=== PATIENT | female | born 1980 | race Caucasian/White ===

== ENCOUNTER 2016-10-09 09:55 | Emergency (ER) | payer OTHER ==
[2016-10-09 10:18] VITALS: RESP 16
[2016-10-09] MEDS ORDERED: PROPARACAINE 0.5% OPHTH DROPS 15 ML BTL RIGHT EYE STA (11:06)
[2016-10-09] MEDS ORDERED: TOBRAMYCIN 0.3% OPHTH DROPS 5 ML BTL RIGHT EYE STA (11:09)
--- NOTE | 2016-10-09 11:17 | ED ---
General Adult HPI - General Chief complaint: Eye Problems Stated complaint: eye pain Time Seen by Provider: 10/09/16 10:48 Source: patient, RN notes reviewed Mode of arrival: ambulatory Limitations: no limitations - History of Present Illness Initial comments: Patient 35-year-old female who presents emergency room today with chief complaint of injury to the right eye. Does admit that she was using a tweezers 20 and her son came up bumped her in the leg and she accidentally poked herself in the right eye. She states her vision has been fine. States does feel a foreign body sensation. Patient states it happened approximately 2-1/2 hours ago. She denies any other complaints or symptoms. States her tetanus is up-to- date. Patient denies any recent fever, chills, shortness of breath, chest pain, back pain, abdominal pain, nausea or vomiting, numbness or tingling, dysuria or hematuria, constipation or diarrhea, headaches or visual changes, or any other complaints. - Related Data Home Medications Medication Instructions Recorded Confirmed Cetirizine HCl [Zyrtec] 10 mg PO DAILY PRN 10/09/16 10/09/16 Ibuprofen [Motrin] 400 mg PO Q6HR PRN 10/09/16 10/09/16 Previous Rx's Medication Instructions Recorded Tobramycin 0.3% Ophth Soln [Tobrex 1 - 2 drop BOTH EYES QID 7 Days 10/09/16 0.3% Ophth Soln] Allergies Allergy/AdvReac Type Severity Reaction Status Date / Time codeine Allergy Rash/Hives Verified 10/09/16 10:30 Penicillins Allergy WELTS/RASH Verified 10/09/16 10:30 tramadol AdvReac RESTLESS Verified 10/09/16 10:30 LEG Review of Systems ROS Statement: Those systems with pertinent positive or pertinent negative responses have been documented in the HPI. ROS Other: All systems not noted in ROS Statement are negative. Past Medical History Past Medical History: No Reported History History of Any Multi-Drug Resistant Organisms: None Reported Past Surgical History: Breast Surgery, Tonsillectomy Additional Past Surgical History / Comment(s): LAPAROSCOPY Past Psychological History: ADD/ADHD Smoking Status: Current every day smoker Past Alcohol Use History: Occasional Past Drug Use History: None Reported General Exam - General Exam Comments Initial Comments: General: The patient is awake and alert, in no distress, and does not appear acutely ill. Eye: Pupils are equal, round and reactive to light, extra-ocular movements are intact. No nystagmus. There is normal conjunctiva bilaterally. No signs of icterus. Ears, nose, mouth and throat: There are moist mucous membranes and no oral lesions. Neck: The neck is supple, there is no tenderness or JVD. Cardiovascular: There is a regular rate and rhythm. No murmur, rub or gallop is appreciated. Respiratory: Lungs are clear to auscultation, respirations are non-labored, breath sounds are equal. No wheezes, stridor, rales, or rhonchi. Musculoskeletal: Normal ROM, no tenderness. Strength 5/5. Sensation intact. Pulses equal bilaterally 2+. Neurological: A&O x 3. CN II-XII intact, There are no obvious motor or sensory deficits. Coordination appears grossly intact. Speech is normal. Skin: Skin is warm and dry and no rashes or lesions are noted. Psychiatric: Cooperative, appropriate mood & affect, normal judgment. Limitations: no limitations Course Vital Signs 10/09/16 10:15 Temperature 98.4 F Pulse Rate 81 Respiratory 16 Rate Blood Pressure 130/76 O2 Sat by Pulse 99 Oximetry Procedures - Procedures Initial comment: Patient's right eye was anesthetized locally with proparacaine. This didn't relieve her symptoms. Patient's right eye was stained and checked underneath Mckeon lamp which reveals a moderate sized abrasion from the 3:00 to 5 o'clock position. No foreign body appreciated. Medical Decision Making - Medical Decision Making 35-year-old female seen for corneal abrasion. No sign of foreign body. Will be started on antibiotic drops. Tetanus is up-to-date. Advised follow-up with ophthalmology if symptoms are not completely resolved in 2 days. Advised return if any symptoms increase or worsen. Patient states understanding and is in agreement. Disposition Clinical Impression: Corneal abrasion Disposition: HOME SELF-CARE Condition: Good Instructions: Corneal Abrasion (ED) Additional Instructions: Please use antibiotic drops as prescribed. Please follow-up with loom repairer in 2 days of symptoms have not completely resolved. Please return to emergency room if any symptoms increase or worsen or for any other concerns. Prescriptions: Tobramycin 0.3% Ophth Soln [Tobrex 0.3% Ophth Soln] 1 - 2 drop BOTH EYES QID 7 Days Referrals: None,Stated [Primary Care Provider] - 1-2 days Ivone Figueroa MD [STAFF PHYSICIAN] - 1-2 days Time of Disposition: 11:10
[2016-10-09 11:35] VITALS: BP 120/70; PULSE 78; TEMP 97.8
== END 2016-10-09 11:34 | disposition home or self-care (01) ==
LOC: EC 09:55
DX: S05.01XA Injury of conjunctiva and corneal abrasion without foreign body, right eye, initial encounter (principal); F17.200 Nicotine dependence, unspecified, uncomplicated; Z88.0 Allergy status to penicillin; Z88.5 Allergy status to narcotic agent; Z88.6 Allergy status to analgesic agent; W20.8XXA Other cause of strike by thrown, projected or falling object, initial encounter
CPT/HCPCS: 99283

== ENCOUNTER 2023-04-08 08:36 | Emergency (ER) | payer OTHER ==
[2023-04-08 08:43] VITALS: BP 134/71; PULSE 84; RESP 16; TEMP 98.2
--- NOTE | 2023-04-08 09:21 | ED ---
ENT HPI - General Chief complaint: Dental/Oral Stated complaint: dental pain Time Seen by Provider: 04/08/23 08:49 Source: patient Mode of arrival: ambulatory Limitations: no limitations - History of Present Illness Initial comments: The patient's 42-year-old female presents emergency room with continued swelling and pain to the left lower gum. Patient is a history of poor dentition and dental cavities throughout. She has had THIS in the past. Was seen 2 weeks ago and diagnosed and treated for a dental abscess. Patient finished clindamycin a few days ago and within 2 days the swelling started to return. She states it is not as bad as it had been but it starting to wrosen again. she cannot get into any dental clinics for several months. she denies fevers or drainage. - Related Data Previous Rx's Medication Instructions Recorded Zolpidem [Ambien] 5 mg PO HS PRN 3 Days #3 tab 09/03/22 Clindamycin [Cleocin] 450 mg PO Q8H #72 cap 03/23/23 Chlorhexidine Gluconate [Peridex] 15 ml PO BID #473 ml 04/08/23 Clindamycin [Cleocin] 300 mg PO Q6H 10 Days #80 capsule 04/08/23 Zolpidem [Ambien] 5 mg PO HS PRN 3 Days #3 tab 04/08/23 metroNIDAZOLE [Flagyl] 500 mg PO BID 10 Days #20 tab 04/08/23 Allergies Allergy/AdvReac Type Severity Reaction Status Date / Time Penicillins Allergy WELTS/RASH Verified 04/08/23 08:39 codeine AdvReac Nausea/rest Verified 04/08/23 08:39 less tramadol AdvReac Nausea/rest Verified 04/08/23 08:39 less Review of Systems ROS Statement: Those systems with pertinent positive or pertinent negative responses have been documented in the HPI. ROS Other: All systems not noted in ROS Statement are negative. Past Medical History Past Medical History: No Reported History History of Any Multi-Drug Resistant Organisms: None Reported Past Surgical History: Breast Surgery, Tonsillectomy Additional Past Surgical History / Comment(s): LAPAROSCOPY Past Psychological History: ADD/ADHD Smoking Status: Vaper Past Alcohol Use History: None Reported Past Drug Use History: None Reported General Exam Limitations: no limitations General appearance: alert, in no apparent distress Head exam: Present: atraumatic Eye exam: Present: normal appearance ENT exam: Present: mucous membranes moist, other (dental decay throughout. dental cavity tooth #21, mild surrounding swelling with no well defined fluctuant abscess or drainage. no sublingual swelling. airway intact.) Neck exam: Present: normal inspection, full ROM Course Vital Signs 04/08/23 08:39 Temperature 98.2 F Pulse Rate 84 Respiratory 16 Rate Blood Pressure 134/71 O2 Sat by Pulse 100 Oximetry - Consultations Consultation #1: Patient's whelping emergency room. She has no significant lymphadenopathy. There is no well defined abscess to drain at this time. i will give the patient the [facility] information for closer follwo up. we will add flagyl into the antibiotic regimen for broader coverage. Medical Decision Making - Medical Decision Making Was pt. sent in by a medical professional or institution ([facility], UI ENGINEER, urgent care, hospital, or skilled nursing...) When possible be specific @ -[No] Did you speak to anyone other than the patient for history (EMS, parent, family, police, friend...)? What history was obtained from this source @ -[No] Did you review nursing and triage notes (agree or disagree)? Why? @ -[I reviewed and agree with nursing and triage notes] Were old charts reviewed (outside hosp., previous admission, EMS record, old EKG, old radiological studies, urgent care reports/EKG's, skilled nursing records)? Report findings @ -Yes old charts were reviewed Differential Diagnosis (chest pain, altered mental status, abdominal pain women, abdominal pain men, vaginal bleeding, weakness, fever, dyspnea, syncope, headache, dizziness, GI bleed, back pain, seizure, CVA, palpatations, mental health, musculoskeletal)? @ -Dental abscess, dental decay, dental cavity EKG interpreted by me (3pts min.). @ -[As above] X-rays interpreted by me (1pt min.). @ -[None done] CT interpreted by me (1pt min.). @ -[None done] U/S interpreted by me (1pt. min.). @ -[None done] What testing was considered but not performed or refused? (CT, X-rays, U/S, labs)? Why? @ -[None] What meds were considered but not given or refused? Why? @ -[None] Did you discuss the management of the patient with other professionals (professionals i.e. DrSunil, PA, UI ENGINEER, lab, RT, psych nurse, social science teacher, sign hanger supervisor, teacher, chief science officer, piano case maker)? Give summary @ -Discussed patient's symptoms and management with attending ED physician Dr. Cisneros today. Was smoking cessation discussed for >3mins.? @ -[No] Was critical care preformed (if so, how long)? @ -[No] Were there social determinants of health that impacted care today? How? (Homelessness, low income, unemployed, alcoholism, drug addiction, transportation, low edu. Level, literacy, decrease access to med. care, senior care, rehab)? @ -Patient was given resources for low income or free dental clinic in [place]. Was there de-escalation of care discussed even if they declined (Discuss DNR or withdrawal of care, Hospice)? DNR status @ -[No] What co-morbidities impacted this encounter? (DM, HTN, Smoking, COPD, CAD, Cancer, CVA, ARF, Chemo, Hep., AIDS, mental health diagnosis, sleep apnea, morbid obesity)? @ -[None] Was patient admitted / discharged? Hospital course, mention meds given and route, prescriptions, significant lab abnormalities, going to OR and other pertinent info. @ -A she is stable to follow up as an outpatient. She may continue treatment with outpatient antibiotics including clindamycin and Flagyl for a more broad- spectrum management. Undiagnosed new problem with uncertain prognosis? @ -[No] Drug Therapy requiring intensive monitoring for toxicity (Heparin, Nitro, Insulin, Cardizem)? @ -[No] Were any procedures done? @ -[No] Diagnosis/symptom? @ -Dental abscess, dental decay, dental cavity Acute, or Chronic, or Acute on Chronic? @ -Acute on chronic Uncomplicated (without systemic symptoms) or Complicated (systemic symptoms)? @ -Uncomplicated Side effects of treatment? @ -[No] Exacerbation, Progression, or Severe Exacerbation? @ -[No] Poses a threat to life or bodily function? How? (Chest pain, [place], [place], pneumonia, PE, COPD, DKA, ARF, appy, cholecystitis, CVA, Diverticulitis, Homicidal, Suicidal, threat to staff... and all critical care pts) @ -[No] Disposition Clinical Impression: Dental abscess, Dental cavity Disposition: HOME SELF-CARE Condition: Fair Instructions (If sedation given, give patient instructions): Dental Abscess (ED), Toothache (ED), Abscess (ED) Additional Instructions: [facility] [address] [place] [address] Is patient prescribed a controlled substance at d/c from ED?: Yes When asked, does pt state using other controlled substances?: No If prescribed controlled substance>3 days was MAPS reviewed?: Prescribed <3 Days Referrals: None,Stated [Primary Care Provider] - 1-2 days Time of Disposition: 09:21
== END 2023-04-08 09:40 | disposition home or self-care (01) ==
LOC: EC 08:36
DX: K04.7 Periapical abscess without sinus (principal); K02.9 Dental caries, unspecified; F17.290 Nicotine dependence, other tobacco product, uncomplicated; Z88.0 Allergy status to penicillin; Z88.5 Allergy status to narcotic agent
CPT/HCPCS: 99283